=== PATIENT | female | born 1930 | race Caucasian/White ===

== ENCOUNTER → 2016-10-30 | Outpatient (REF) | payer MEDICARE ==
[2016-10-30 13:39] LABS: BASOPHILS % (AUTO) 0 % (0-2); EOSINOPHILS # (AUTO) 0.1 10^3uL; EOSINOPHILS % (AUTO) 2 % (0-4); LYMPHOCYTES # (AUTO) 1.5 X10^3; MEAN CORPUSCULAR VOLUME 80 FL (80-100); MEAN PLATELET VOLUME 10.7 FL (6.0-9.5); MONOCYTES # (AUTO) 0.6 X10^3; MONOCYTES % (AUTO) 8 % (3-11); NEUTROPHILS # (AUTO) 5.6 X10^3; NEUTROPHILS % (AUTO) 71 % (51-67); PLATELET COUNT 217 10^3uL (150-450); WHITE BLOOD COUNT 7.78 10^3uL (4.0-11.0)
[2016-10-30 13:49] LABS: ALBUMIN 3.9 g/dL (3.4-5.0); ANION GAP 17.7 MEQ/L (3-15); TOTAL PROTEIN 6.6 g/dL (6.4-8.5)
[2016-10-30 13:51] LABS: MEAN CORPUSCULAR HEMOGLOBIN 24.8 PG (26.0-34.0); MEAN CORPUSCULAR HGB CONC 31.2 g/dL (31.0-37.0)
== END ==
LOC: LAB 13:02
PROVIDERS: ATTEND Family Medicine
DX: D50.0 Iron deficiency anemia secondary to blood loss (chronic) (principal); E11.9 Type 2 diabetes mellitus without complications
CPT/HCPCS: 80053; 85025

== ENCOUNTER → 2016-12-11 | Outpatient (CLI) | payer MEDICARE | LOC: LAB 10:32 | PROVIDERS: ATTEND Family Medicine | DX: E11.9 Type 2 diabetes mellitus without complications (principal) | CPT/HCPCS: 36415; 83036 ==

== ENCOUNTER → 2016-12-14 | Outpatient (REF) | payer MEDICARE | LOC: LAB 10:55 | PROVIDERS: ATTEND Family Medicine | DX: Z53.9 Procedure and treatment not carried out, unspecified reason (principal) ==

== ENCOUNTER → 2016-12-14 | Outpatient (CLI) | payer MEDICARE | LOC: RAD 11:04 | PROVIDERS: ATTEND Family Medicine | DX: M25.551 Pain in right hip (principal); M16.11 Unilateral primary osteoarthritis, right hip | CPT/HCPCS: 73502 ==

== ENCOUNTER → 2016-12-21 | Outpatient (CLI) | payer MEDICARE ==
[~2016-12-21] MED LIST: methylPREDNISolone 40 MG/ML (Solu-MEDROL) VIAL ONE; methylPREDNISolone 80 MG/ML (DEPO MEDROL) VIAL IM ONE
== END ==
LOC: RAD 09:19
PROVIDERS: ATTEND Family Medicine
DX: M16.11 Unilateral primary osteoarthritis, right hip (principal); M25.551 Pain in right hip
CPT/HCPCS: 20610; 36415; 77002; 85610; 85730; J1040; Q9966; Q9967

== ENCOUNTER → 2017-03-11 | Outpatient (CLI) | payer MEDICARE ==
[~2017-03-11] MED LIST changes: +ACDPT PO; +AML5T PO; +ASPI-345 PO; +ATOR10TA PO; +BRIM10DR2 OU; +CALC600T12 PO; +CIPR500T21 PO; +CPR500T PO; +GLIM1TAB PO; +HYDR-3702 PO; +IRON1CAP21 PO; +IRON1CAP31 PO; +LISI1TAB17 PO; +LSNP20T PO; +METF500T4 PO; +METO-274 PO; +NAPR220C11 PO; +NFMET1000 PO; +OMEG1CAP58 PO; +OMEP20CA6 PO; +TAMS-8 PO; +TRIA1TAB18 PO; +[UNRECOGNIZED DRUG - CODE] PO; -methylPREDNISolone 40 MG/ML (Solu-MEDROL) VIAL ONE; -methylPREDNISolone 80 MG/ML (DEPO MEDROL) VIAL IM ONE
== END ==
LOC: LAB 10:44
PROVIDERS: ATTEND Family Medicine
DX: E11.9 Type 2 diabetes mellitus without complications (principal)
CPT/HCPCS: 36415; 83036